=== PATIENT | female | born 1985 | race Caucasian/White ===

== ENCOUNTER 2017-10-23 22:46 | Emergency (ER) | payer MEDICAID ==
[~2017-10-23] VITALS: Ht 162.6 cm; Wt 72.6 kg
[2017-10-23 22:57] VITALS: Ht 162.6 cm; Wt 72.6 kg
[2017-10-24 01:14] VITALS: BP 144/80
== END 2017-10-24 01:14 | disposition home or self-care (01) ==
LOC: ED 22:46
DX: N93.8 Other specified abnormal uterine and vaginal bleeding (principal)

== ENCOUNTER 2018-04-07 16:27 | Emergency (ER) | payer SELFPAY ==
[~2018-04-07] VITALS: Ht 160 cm; Wt 71.7 kg
[2018-04-07 16:35] VITALS: Ht 160 cm; Wt 71.7 kg
[2018-04-07 18:27] LABS: BASOPHIL % 0.4 % (0-2); PLATELET COUNT 400 x10^3mcL (130-400)
[2018-04-07 18:34] LABS: RED CELL DISTRIBUTION WIDTH 20.3 % (11.5-14.5)
[2018-04-07 19:29] LABS: rbc morphology (normal/abnorm) ABNORMAL (NORMAL)
[2018-04-07 19:31] LABS: ovalocyte/elliptocyte 2+
[2018-04-07 20:15] VITALS: BP 136/82
== END 2018-04-07 20:15 | disposition home or self-care (01) ==
LOC: ED 16:27
PROVIDERS: Emergency Medicine
DX: O20.0 Threatened abortion (principal); D64.9 Anemia, unspecified; N83.209 Unspecified ovarian cyst, unspecified side; D25.9 Leiomyoma of uterus, unspecified; N93.9 Abnormal uterine and vaginal bleeding, unspecified; Z3A.01 Less than 8 weeks gestation of pregnancy
CPT/HCPCS: 36415